=== PATIENT | female | born 1990 | race Caucasian/White ===

== ENCOUNTER 2018-01-02 14:41 | Emergency (ER) | payer OTHER ==
--- NOTE | 2018-01-02 14:42 | UC ---
Throat Pain/Nasal Chuckie HPI - HPI Summary HPI Summary: Pt presents with sore throat and body aches since yesterday. Also mentions that over the last 3 days she has noticed thick white/yellow vaginal discharge. LMP was first week of december. Is currently sexually active with boyfriend, not worried about STDs and feels safe in relationship. Denies cough, SOB, chest pain , abdominal pain, n/v/d/c, dysuria. - History of Current Complaint Stated Complaint: SORE THROAT Time Seen by Provider: 01/02/18 14:42 Hx Obtained From: Patient Hx Last Menstrual Period: 08/23/16 Onset/Duration: Gradual Onset Severity: Mild Pain Intensity: 3 Pain Scale Used: 0-10 Numeric - Allergies/Home Medications Allergies/Adverse Reactions: Allergies Allergy/AdvReac Type Severity Reaction Status Date / Time MS Cephalexin [From Keflex] Allergy Severe Hives Verified 08/25/16 11:18 MS Ciprofloxacin [From Cipro] Allergy Severe Hives Verified 08/25/16 11:18 MS Penicillins [Penicillins] Allergy Severe Hives Verified 08/25/16 11:18 Home Medications: Home Medications Buprenorphine HCl/Naloxone HCl [Suboxone 12 mg-3 mg Sl Film] 1.5 tab PO BID [History Confirmed 01/02/18] QUEtiapine TAB* [Seroquel TAB*] 1 tab PO DAILY 01/02/18 [History Confirmed 01/02] PMH/Surg Hx/FS Hx/Imm Hx Respiratory History: Asthma Psychological History: Bipolar Disorder - Surgical History Surgical History: None - Family History Known Family History: Positive: Hypertension Negative: Cardiac Disease, Diabetes - Social History Occupation: Unemployed Lives: Assisted Living Alcohol Use: None Alcohol Amount: recovering Substance Use Type: Cocaine, Heroin, Marijuana Substance Use Comment - Amount & Last Used: denies this visit Smoking Status (MU): Heavy Every Day Tobacco Smoker Type: Cigarettes Amount Used/How Often: 1/2 -1 PPD Length of Time of Smoking/Using Tobacco: started at age 13 Have You Smoked in the Last Year: Yes Household Exposure Type: Cigarettes - Immunization History Most Recent Influenza Vaccination: not current Most Recent Tetanus Shot: unknown Most Recent Pneumonia Vaccination: never Review of Systems Constitutional: Other - Body aches Skin: Negative Eyes: Negative ENT: Sore Throat Respiratory: Negative Cardiovascular: Negative Gastrointestinal: Negative Genitourinary: Vaginal/Penile Discharge Neurovascular: Negative Musculoskeletal: Negative Neurological: Negative Psychological: Negative All Other Systems Reviewed And Are Negative: Yes Physical Exam Triage Information Reviewed: Yes Appearance: Well-Appearing, No Pain Distress, Obese Vital Signs Reviewed: Yes Eyes: Positive: Conjunctiva Clear. Negative: Conjunctiva Inflamed, Discharge ENT: Positive: Hearing grossly normal, Pharynx normal, TMs normal, Uvula midline. Negative: Pharyngeal erythema, Nasal congestion, Nasal drainage, TM bulging, TM dull, TM red, Tonsillar swelling, Tonsillar exudate, Hoarse voice, Sinus tenderness Neck: Positive: Supple, Nontender, No Lymphadenopathy Respiratory: Positive: Lungs clear, Normal breath sounds, No respiratory distress, No accessory muscle use Cardiovascular: Positive: RRR, No Murmur, Pulses Normal Abdomen Description: Positive: Nontender, No Organomegaly, Soft. Negative: CVA Tenderness (R), CVA Tenderness (L), Distended, Guarding Bowel Sounds: Positive: Present Pelvic Exam: Positive: External Exam Normal, No Cerv. Motion Tender, No Masses, Discharge - Yellow/White milk-like thin discharge with odor.. Negative: Active Bleeding, Blood, Lesions, Ulcers Neurological: Positive: Alert Psychological: Positive: Age Appropriate Behavior Skin: Negative: rashes, significant lesion(s) Throat Pain/Nasal Course/Dx - Course Course Of Treatment: POC strep. POC flu. UA: negative. Will send for GC/ Chlamydia. Suspect BV and will treat with Flagyl. Pelvic exam assisted by Afua Tolliver RN. - Differential Dx/Diagnosis Provider Diagnoses: Vaginal discharge. Sore throat Discharge - Sign-Out/Discharge Documenting (check all that apply): Discharge - Discharge Plan Condition: Stable Disposition: HOME Prescriptions: metroNIDAZOLE [Flagyl] 500 mg PO BID #14 tablet Patient Education Materials: Bacterial Vaginosis (ED) Forms: *Gen. Provider Communication Referrals: No Primary Care Phys,NOPCP [Primary Care Provider] - Additional Instructions: If you develop a fever, shortness of breath, chest pain, new or worsening symptoms - please call your PCP or go to the ED. 1) Do not drink alcohol while taking this medication as it can cause you to become sick. 2) We have taken cultures at today's visit and will call you in 2-3 days with results. - Billing Disposition and Condition Condition: STABLE Disposition: HOME
[2018-01-02 14:49] VITALS: BP 109/71
--- NOTE | 2018-01-03 14:56 | UC ---
- Progress Note Progress Note: Culture positive for gardnerella. High suspicion at time of visit and was treated with Flagyl. No change, but can let her know. Discharge - Sign-Out/Discharge Documenting (check all that apply): Post-Discharge Follow Up - Discharge Plan Condition: Stable Disposition: HOME Prescriptions: metroNIDAZOLE [Flagyl] 500 mg PO BID #14 tablet Patient Education Materials: Bacterial Vaginosis (ED) Forms: *Gen. Provider Communication Referrals: No Primary Care Phys,NOPCP [Primary Care Provider] - Additional Instructions: If you develop a fever, shortness of breath, chest pain, new or worsening symptoms - please call your PCP or go to the ED. 1) Do not drink alcohol while taking this medication as it can cause you to become sick. 2) We have taken cultures at today's visit and will call you in 2-3 days with results. - Billing Disposition and Condition Condition: STABLE Disposition: HOME
== END 2018-01-02 16:00 | disposition home or self-care (01) ==
LOC: UCEAST 14:41
DX: J02.9 Acute pharyngitis, unspecified (principal); N89.8 Other specified noninflammatory disorders of vagina; B96.89 Other specified bacterial agents as the cause of diseases classified elsewhere; F17.210 Nicotine dependence, cigarettes, uncomplicated; Z88.3 Allergy status to other anti-infective agents; Z88.0 Allergy status to penicillin
CPT/HCPCS: 81003; 87480; 87491; 87502; 87510; 87591; 87651; 87661; 99212; G0463

== ENCOUNTER 2018-02-17 14:39 | Emergency (ER) | payer OTHER ==
[2018-02-17 14:55] VITALS: BP 132/73
--- NOTE | 2018-02-17 16:23 | UC ---
Respiratory Complaint HPI - HPI Summary HPI Summary: 27 yo WF c/o mild SOB while laying down, with separate c/o upper and lower extremity swelling x few days. No cardiac issues, no changes in diet - History of Current Complaint Chief Complaint: UCGeneralIllness Stated Complaint: SWOLLEN Time Seen by Provider: 02/17/18 15:26 Hx Obtained From: Patient Hx Last Menstrual Period: 01/09/18 Onset/Duration: Lasting Days Severity Initially: Moderate Severity Currently: Moderate Pain Intensity: 0 Character: Cough: Productive Aggravating Factors: Nothing Alleviating Factors: Nothing Associated Signs And Symptoms: Positive: Pleuritic Chest Pain - Allergies/Home Medications Allergies/Adverse Reactions: Allergies Allergy/AdvReac Type Severity Reaction Status Date / Time cephalexin [From Keflex] Allergy Severe Hives Verified 02/17/18 15:07 ciprofloxacin [From Cipro] Allergy Severe Hives Verified 02/17/18 15:07 Penicillins Allergy Severe Hives Verified 02/17/18 15:07 PMH/Surg Hx/FS Hx/Imm Hx Previously Healthy: No Cardiovascular History: Cardiac Disease - Surgical History Surgical History: None - Family History Known Family History: Positive: Hypertension Negative: Cardiac Disease, Diabetes - Social History Alcohol Use: None Alcohol Amount: recovering Substance Use Type: None Substance Use Comment - Amount & Last Used: recovered Smoking Status (MU): Heavy Every Day Tobacco Smoker Type: Cigarettes Amount Used/How Often: 1/2 -1 PPD Length of Time of Smoking/Using Tobacco: started at age 13 Have You Smoked in the Last Year: Yes Household Exposure Type: Cigarettes - Immunization History Most Recent Influenza Vaccination: not current Most Recent Tetanus Shot: unknown Most Recent Pneumonia Vaccination: never Review of Systems Constitutional: Negative Skin: Other - generalized swelling Eyes: Negative ENT: Negative Respiratory: Shortness Of Breath, Cough Cardiovascular: Negative Gastrointestinal: Negative Genitourinary: Negative Motor: Negative Neurovascular: Negative Musculoskeletal: Negative Neurological: Negative Psychological: Negative All Other Systems Reviewed And Are Negative: Yes Physical Exam Triage Information Reviewed: Yes Appearance: Obese Vital Signs: Initial Vital Signs Temp 36.6 C 02/17/18 14:48 Pulse 98 02/17/18 14:48 Resp 18 02/17/18 14:48 BP 132/73 02/17/18 14:48 Pulse Ox 100 02/17/18 14:48 Eye Exam: Normal ENT Exam: Normal Dental Exam: Normal Neck exam: Normal Neck: Positive: 1 Respiratory: Positive: Other: - coarse BS B/L. Negative: No respiratory distress, No accessory muscle use, Respiratory distress Cardiovascular Exam: Normal Abdominal Exam: Normal Musculoskeletal Exam: Normal Neurological Exam: Normal Psychological Exam: Normal Skin Exam: Normal Skin: Positive: Other - Mild pitting LE swelling R>L extremities UC Diagnostic Evaluation - Laboratory O2 Sat by Pulse Oximetry: 100 Respiratory Course/Dx - Course Course Of Treatment: CXR- RLL infilatrate, pt is a smoker- pt may be developing BronchoPNA- Z hilray - Differential Dx/Diagnosis Provider Diagnoses: bronchitis. PNA. Mild edema Discharge - Sign-Out/Discharge Documenting (check all that apply): Discharge/Admit/Transfer - Discharge Plan Condition: Stable Disposition: HOME Patient Education Materials: Pneumonia (ED) Referrals: Non Staff,Doctor [Primary Care Provider] - - Billing Disposition and Condition Condition: STABLE Disposition: HOME
--- NOTE | 2018-02-17 16:43 | RAD ---
Indication: Leg swelling and edema. 2 views of the chest demonstrate no mediastinal shift. Heart is of normal size and configuration. Lung stafford are clear. IMPRESSION: No active cardiopulmonary disease is noted.
== END 2018-02-17 16:55 | disposition home or self-care (01) ==
LOC: UCEAST 14:39
DX: J40 Bronchitis, not specified as acute or chronic (principal); J18.9 Pneumonia, unspecified organism; R60.9 Edema, unspecified; Z88.1 Allergy status to other antibiotic agents; Z88.0 Allergy status to penicillin
CPT/HCPCS: 71046; 84702; 99212; G0463

== ENCOUNTER 2018-05-03 13:03 | Emergency (ER) | payer OTHER ==
[2018-05-03 13:27] VITALS: BP 106/61
--- NOTE | 2018-05-03 13:57 | ED ---
Throat Pain/Nasal Congestion - HPI Summary HPI Summary: 28-year-old female presents with left ear pain for the past 2 days. She states she has been swimmings that she feels pain in the front of left ear. 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 She denies any sinus congestion. No sore throat. No fevers. She does not have a history of ear infections. - History of Current Complaint Chief Complaint: UCEar Time Seen by Provider: 05/03/18 13:39 - Allergies/Home Medications Allergies/Adverse Reactions: Allergies Allergy/AdvReac Type Severity Reaction Status Date / Time cephalexin [From Keflex] Allergy Severe Hives Verified 05/03/18 13:32 ciprofloxacin [From Cipro] Allergy Severe Hives Verified 05/03/18 13:32 Penicillins Allergy Severe Hives Verified 05/03/18 13:32 Home Medications: Home Medications Buprenorphine HCl/Naloxone HCl [Suboxone 4 mg-1 mg Sl Film] 4 mg SL BEDTIME [History Confirmed 05/03/18] Buprenorphine HCl/Naloxone HCl [Suboxone 4 mg-1 mg Sl Film] 8 mg SL DAILY [History Confirmed 05/03/18] Gabapentin CAP(*) [Neurontin 300 CAP(*)] 1 tab PO TID 05/03/18 [History Confirmed 05/03/18] PMH/Surg Hx/FS Hx/Imm Hx Endocrine/Hematology History: Denies: Hx Diabetes, Hx Thyroid Disease Cardiovascular History: Denies: Hx Hypertension Respiratory History: Reports: Hx Asthma Denies: Hx Chronic Obstructive Pulmonary Disease (COPD) GI History: Denies: Hx Ulcer Musculoskeletal History: Reports: Hx Back Problems - sciatic back pain; pt denies Psychiatric History: Reports: Hx Anxiety, Hx Attention Deficit Hyperactivity Disorder, Hx Depression, Hx Post Traumatic Stress Disorder, Hx Inpatient Treatment, Hx Community Mental Health Tx, Hx Substance Abuse Denies: Hx Eating Disorder, Hx of Violent Episodes Against Others Infectious Disease History: Yes Infectious Disease History: Reports: Hx Hepatitis - Hep C (Current) Denies: Hx Human Immunodeficiency Virus (HIV), Hx of Known/Suspected MRSA, History Other Infectious Disease, Traveled Outside the [place] in Last 30 Days - Family History Known Family History: Positive: Hypertension Negative: Cardiac Disease, Diabetes - Social History Alcohol Use: None Alcohol Amount: recovering Hx Substance Use: Yes Substance Use Type: Reports: None Substance Use Comment - Amount & Last Used: recovered Hx Tobacco Use: Yes Smoking Status (MU): Heavy Every Day Tobacco Smoker Type: Cigarettes Amount Used/How Often: 1/2 -1 PPD Length of Time of Smoking/Using Tobacco: started at age 13 Have You Smoked in the Last Year: Yes Review of Systems Negative: Fever Positive: Ear Ache Negative: Chest Pain Negative: Shortness Of Breath All Other Systems Reviewed And Are Negative: Yes Physical Exam Triage Information Reviewed: Yes Vital Signs On Initial Exam: Initial Vitals Temp Pulse Resp BP Pulse Ox 98.3 F 76 17 106/61 99 05/03/18 13:21 05/03/18 13:21 05/03/18 13:21 05/03/18 13:21 05/03/18 13:21 Vital Signs Reviewed: Yes Appearance: Positive: Well-Appearing Skin: Positive: Warm, Dry Head/Face: Positive: Normal Head/Face Inspection Eyes: Positive: Normal, EOMI, MURTAZA, Conjunctiva Clear ENT: Positive: TMs normal, Other - Pain with manipulation of tragus, Ear canal is edematous and erythematous on left Respiratory/Lung Sounds: Positive: Clear to Auscultation, Breath Sounds Present Cardiovascular: Positive: Normal, RRR Musculoskeletal: Positive: Normal Neurological: Positive: Normal Psychiatric: Positive: Normal Diagnostics - Vital Signs Vital Signs Temp Pulse Resp BP Pulse Ox 05/03/18 13:21 98.3 F 76 17 106/61 99 - Laboratory Lab Statement: Any lab studies that have been ordered have been reviewed, and results considered in the medical decision making process. EENT Course/Dx - Course Course Of Treatment: 28-year-old female presents with left ear pain for the past 2 days. She states she has been swimmings that she feels pain in the front of left ear. 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 She denies any sinus congestion. No sore throat. No fevers. She does not have a history of ear infections. On exam ear canal is edematous and erythematous. Pain with manipulation of the tragus. TMs normal. We'll place on neomycin. Patient understands agrees with plan. - Differential Diagnoses Differential Diagnoses: Otitis Externa, Otitis Media, Perforated TM - Diagnoses Provider Diagnoses: Otitis externa Discharge - Sign-Out/Discharge Documenting (check all that apply): Patient Departure - Discharge Plan Condition: Good Disposition: HOME Prescriptions: Neomyc/Polym/HC 1% OTIC SUSP* [Cortisporin Otic Susp 1%*] 4 drop LEFT EAR TID # 1 btl Patient Education Materials: Otitis Externa (ED) Referrals: Karolina Tanner MD [Primary Care Provider] - Additional Instructions: Use 4 drops three times a day for 7 days Take Tylenol or ibuprofen for pain every 6 hours as needed Avoid swimming until done with antibiotic Follow up with primary in a week to make sure resolving Return to ED if develop any new or worsening symptoms - Billing Disposition and Condition Condition: GOOD Disposition: Home
== END 2018-05-03 14:04 | disposition home or self-care (01) ==
LOC: UCEAST 13:03
DX: H60.92 Unspecified otitis externa, left ear (principal); H66.92 Otitis media, unspecified, left ear; H72.92 Unspecified perforation of tympanic membrane, left ear; L40.9 Psoriasis, unspecified; J45.909 Unspecified asthma, uncomplicated; F17.210 Nicotine dependence, cigarettes, uncomplicated; Z88.1 Allergy status to other antibiotic agents; Z88.0 Allergy status to penicillin
CPT/HCPCS: 99212; G0463

== ENCOUNTER 2018-05-25 11:32 | Emergency (ER) | payer OTHER ==
[2018-05-25 11:52] VITALS: BP 100/64
--- NOTE | 2018-05-25 12:09 | UC ---
Skin Complaint HPI - HPI Summary HPI Summary: rash under both arms for 5 days past 2 days has developed an abscess in left axilla, no drainage, some decrease in size with heat- - History of Current Complaint Chief Complaint: UCRash Time Seen by Provider: 05/25/18 11:57 Stated Complaint: RASH UNDER ARMS Hx Obtained From: Patient Hx Last Menstrual Period: 04/08/18 ?: No Onset/Duration: Sudden Onset, Lasting Days - 5, Worse Since - past 2 Timing: Constant Pain Intensity: 8 Pain Scale Used: 0-10 Numeric Location: Discrete Character: Pain, Redness, Raised Aggravating Factor(s): Touch Alleviating Factor(s): Heat Associated Signs & Symptoms: Positive: Rash, Tenderness - Allergy/Home Medications Allergies/Adverse Reactions: Allergies Allergy/AdvReac Type Severity Reaction Status Date / Time cephalexin [From Keflex] Allergy Severe Hives Verified 05/25/18 11:52 ciprofloxacin [From Cipro] Allergy Severe Hives Verified 05/25/18 11:52 Penicillins Allergy Severe Hives Verified 05/25/18 11:52 Home Medications: Home Medications Buprenorphine TAB* [Subutex TAB*] 12 mg SL DAILY 05/25/18 [History Confirmed ] Review of Systems Constitutional: Negative Skin: Rash - both axilla, Other - abscess left axilla Eyes: Negative ENT: Negative Respiratory: Negative Cardiovascular: Negative Gastrointestinal: Negative Genitourinary: Negative Motor: Negative Neurovascular: Negative Musculoskeletal: Negative Neurological: Negative Psychological: Negative Is Patient Immunocompromised?: No All Other Systems Reviewed And Are Negative: Yes PMH/Surg Hx/FS Hx/Imm Hx Previously Healthy: Yes - opiate abuse disorder in remission - Surgical History Surgical History: None - Family History Known Family History: Positive: Hypertension Negative: Cardiac Disease, Diabetes - Social History Occupation: Unemployed Lives: With Family Alcohol Use: None Alcohol Amount: recovering Substance Use Type: None Substance Use Comment - Amount & Last Used: recovered Smoking Status (MU): Heavy Every Day Tobacco Smoker Type: Cigarettes Amount Used/How Often: 1/2 -1 PPD Length of Time of Smoking/Using Tobacco: started at age 13 Have You Smoked in the Last Year: Yes Household Exposure Type: Cigarettes Cessation Counseling: Patient Advised to Stop - Immunization History Most Recent Influenza Vaccination: not current Most Recent Tetanus Shot: unknown Most Recent Pneumonia Vaccination: never Physical Exam Triage Information Reviewed: Yes Appearance: Well-Appearing, No Pain Distress, Well-Nourished Vital Signs: Initial Vital Signs Temp 98 F 05/25/18 11:49 Pulse 83 05/25/18 11:49 Resp 17 05/25/18 11:49 BP 100/64 05/25/18 11:49 Pulse Ox 99 05/25/18 11:49 Vital Signs Reviewed: Yes Eye Exam: Normal Eyes: Positive: Conjunctiva Clear ENT Exam: Normal ENT: Positive: Normal ENT inspection, Hearing grossly normal. Negative: Trismus , Muffled voice, Hoarse voice Dental Exam: Normal Neck exam: Normal Neck: Positive: Supple, Nontender, No Lymphadenopathy Respiratory Exam: Normal Respiratory: Positive: Chest non-tender, No respiratory distress, No accessory muscle use Cardiovascular Exam: Normal Cardiovascular: Positive: RRR, Pulses Normal, Brisk Capillary Refill Musculoskeletal Exam: Normal Musculoskeletal: Positive: Strength Intact, ROM Intact, No Edema Neurological Exam: Normal Neurological: Positive: Alert, Muscle Tone Normal Psychological Exam: Normal Skin Exam: Other Skin: Positive: rashes - right axilla tenser flat erythema, Other - left abscess 3 cm diameter-no fluctulant center, tenting still firm Course/Dx - Course Course Of Treatment: continue heat, clindamycin follow at [facility] or return as needed - Diagnoses Provider Diagnoses: abscess left axilla, 1st trimester , nicotine dependent, opiate and alcohol abuse disorder in remission Discharge - Sign-Out/Discharge Documenting (check all that apply): Patient Departure - Discharge Plan Condition: Stable Disposition: HOME Prescriptions: Clindamycin Cap(NF) [Clindamycin Cap 300 mg Cap(NF)] 300 mg PO Q6H #40 cap Patient Education Materials: Abscess (ED), Warm Compress or Soak (ED) Referrals: Karolina Tanner MD [Primary Care Provider] - 1 Week - Billing Disposition and Condition Condition: STABLE Disposition: Home
== END 2018-05-25 12:15 | disposition home or self-care (01) ==
LOC: UCEAST 11:32
DX: O26.891 Other specified pregnancy related conditions, first trimester (principal); L02.412 Cutaneous abscess of left axilla; Z3A.00 Weeks of gestation of pregnancy not specified; F11.11 Opioid abuse, in remission; F10.11 Alcohol abuse, in remission; Z88.1 Allergy status to other antibiotic agents; Z88.0 Allergy status to penicillin; F17.210 Nicotine dependence, cigarettes, uncomplicated
CPT/HCPCS: 99211; G0463

== ENCOUNTER 2018-12-28 12:10 | Inpatient (IN) | payer OTHER ==
[2018-12-28] MEDS ORDERED: Buffered Lidocaine 1% SYRIN* 1 ML/SYRINGE INTRADERM ONE (12:40)
[2018-12-28] MEDS ORDERED: Lactated Ringers 1000 ML Bag* 1,000 ML IV ONE (12:40)
[2018-12-28] MEDS ORDERED: Dinoprostone* 10 MG VAG.SUPP VAGINAL ONE (13:00)
[2018-12-28] MEDS ORDERED: Lactated Ringers 1000 ML Bag* 1,000 ML IV SCH (13:00)
--- NOTE | 2018-12-28 13:08 | HP ---
General Information - Reason for Visit high risk due to social problems, here for ripening/induction - General Information Maternal Age: 28 Grav: 6 Para: 2 SAB: 0 IEA: 3 Estimated Due Date: 01/02/19 Determined By: Early Ultrasound Gestational Age in Weeks/Days: 39w 2d Maternal Blood Type and Rh: O Positive - Results this Serology/RPR Result: Non-Reactive Rubella Result: Immune HBsAg Result: Negative HIV Result: Negative GBS Culture Result: Negative Past Medical History Delivery History: Hx Uncomplicated Vaginal Delivery Past Medical History Comment: past hx Hep C Substance Abuse Disorder, currently on Subutex Past Surgical History Comment: D&C 2007 Pertinent Family History: See Records - Antepartal Records Antepartal Records: Reviewed, Complicated by: - drug use, smoker, incarceration Review of Systems Constitutional: Comfortable CV Complaint: No Respiratory: Shortness of Breath: No Gastrointestinal: No Nausea/Vomiting, Soft Stool Genitourinary: No Dysuria, No Bleeding, No Leaking Fluid Musculoskeletal: Back Pain Neurological: No Headache, No Visual Changes Movement: Normal Exam Allergies/Adverse Reactions: Allergies cephalexin [From Keflex] Allergy (Severe, Verified 12/26/18 15:16) Hives ciprofloxacin [From Cipro] Allergy (Severe, Verified 12/26/18 15:16) Hives Penicillins Allergy (Severe, Verified 12/26/18 15:16) Hives - Measurements Height: 5 ft 7 in Weight: 264 lb Weight in lbs: [phone] Body Mass Index (BMI): 41.3 Pre- Weight: 223 lb Weight Gained This : 41 lbs and 0 ozs - Exam Breast: - - soft, no masses Extremities: Edema - varicosities Heart: Normal Rhythm/Heart Sounds HEENT: No Significant Findings Lungs: Clear Bilaterally Reflexes: DTR 2+ Thyroid: No Thyromegaly - Abdominal Exam Abdomen Exam: Non-Tender Targeted Exam Findings See L&D Outpatient Visit Provider Note for Findings: N/A Estimated Weight: 8 lbs Presenting Part: Vertex Membrane Status: Intact EFM Findings - External Monitor Findings Baseline Heart Rate: 130 External Monitor Findings: Accelerations Present, No Pattern of Variable or Late Decelerations, Variability Moderate, Baseline Stable External Monitor Findings Comment: category 1 Contractions: None Assessment/Plan - Assessment at 39 w 2 d, unripe cervix, for elective induction - Obstetrical Risk Factors Obstetrical Risk Factors: Substance Abuse, Tobacco Use, Psychosocial Issues - Plan Plan: Induction, Cervical Ripening - Date/Time of Admission Date of Admission: 12/28/18 Time of Admission: 13:00
[2018-12-28] MEDS: Gabapentin CAP(*) 400 MG PO SCH (13:16)
[2018-12-28 14:06] LABS: Barbiturates Urine Screen None Detected (None Detect); Benzodiazepine Urine Screen None Detected (None Detect); Urine Cannabinoids Screen None Detected (None Detect)
[2018-12-28] MEDS: Buprenorphine TAB* 8 MG PO SCH (20:18)
[2018-12-28] MEDS: Buprenorphine TAB* 2 MG TAB.SL PO SCH (20:18)
--- NOTE | 2018-12-29 08:37 | PN ---
Progress Note - Progress Note Date of Service: 12/29/18 Note: S: Feeling uncomfortable, reports cramping in lower abdomen. Reports difficulty sleeping overnight, up to chair and back to bed frequently. Ready to get labor started O: VS: B/P 118/67, HR: 86, RR: 20, T:98.4 FHR: 135, moderate variability, +accels, no decels. UCs: Irregular, mild VE: 1cm/90%effaced/-3 station/vertex/intact A: IUP at 39 3/7 weeks here for term induction s/p cervidil No evidence of acidemia, Category I FHR P: PARQ discussion re: induction, IV Pitocin, pt agrees to trial Discussed plan for pain management, patient very clear she will want an epidural at some point
[2018-12-29] MEDS: Buprenorphine TAB* 2 MG TAB.SL PO SCH ×3 (08:51→21:59)
[2018-12-29] MEDS: Gabapentin CAP(*) 400 MG PO SCH ×3 (08:52→21:44)
[2018-12-29] MEDS: Buprenorphine TAB* 8 MG PO SCH ×3 (08:53→21:59)
[2018-12-29] MEDS ORDERED: Oxytocin in LR* 20 UNITS/1,000 ML BAG IVPB SCH ×3 (09:00→22:00)
[2018-12-29 10:11] LABS: ABS Basophils 0 10^3/ul (0-0.2); ABS Eosinophils 0.1 10^3/ul (0-0.6); ABS Lymphocytes 1.7 10^3/ul (1.0-4.8); ABS Monocytes 0.8 10^3/ul (0-0.8); ABS Neutrophils 10.6 10^3/ul (1.5-7.7); ABS Nucleated RBC 0 10^3/ul; Eosinophil % 0.9 %; Hematocrit 36 % (33-41); Lymphocyte % 12.9 %; Mean Corpuscular HGB Conc 33 g/dL (31-36); Mean Corpuscular Hemoglobin 29 pg (27-31); Mean Corpuscular Volume 87 fL (80-97); Mean Platelet Volume 8.7 fL (7.4-10.4); Nucleated Red Blood Cells % 0; Platelet Count 299 10^3/uL (150-450); Red Blood Count 4.16 10^6 /uL (3.70-4.87); Red Cell Distribution Width 15 % (10.5-15); White Blood Count 13.2 10^3/uL (3.5-10.8)
--- NOTE | 2018-12-29 11:51 | PN ---
Progress Note - Progress Note Date of Service: 12/29/18 Note: S: Still feeling contractions in lower abdomen, but feeling stronger now. Optimistic and excited to meet this baby. O: B/P: 102/65, P: 80, RR: 20, T: 97.9 FHR: 120, moderate variability, +accels, no late or variable decelerations UCs: 2-7 minutes for past hour, irregular, mild Pitocin at 12 mu/min A: IUP at 39 3/7 weeks Vital signs stable Category 1 FHR, no evidence of acidemia Not in active labor GBS negative P: Continue to titrate pitocin per protocol until adequate contraction pattern Discussed upright positioning, she plans to walk in the [place] after lunch and then get in the tub Anticipate SVB
--- NOTE | 2018-12-29 14:45 | PN ---
Progress Note - Progress Note Date of Service: 12/29/18 Note: S: Pt resting between UCs. Reports they are intermittently strong but lately not as intense. Feeling frustrated because she's really ready to meet her baby. O: BP 103/64 HR 79 RR 18 T 97.5 FHT 120bpm. Moderate variability. +Accels. No decels UCs irregular and difficult to trace due to pt body habitus. IV pitocin at 20mu/ min VE: 3cm/90%/vtx -1, AROM to clear fluid A: IUP at 39-3/7 in early active labor No evidence of metabolic acidemia P: Hold IV pit x 30 min to see if AROM effective. Consider IUPC PRN difficulty assessing UCs. Pt will request labor epidural when more uncomfortable
[2018-12-29] MEDS ORDERED: OBEPIDURAL* 250 ML EPIDURAL ONE (15:40)
--- NOTE | 2018-12-29 15:46 | PN ---
Progress Note - Progress Note Date of Service: 12/29/18 Note: S: Feeling uncomfortable, verbalizes "I've felt enough contractions for two days ," requesting pain relief O: VS: B/P: 103/64, P:79, RR:18, T: 97.5 FHR: 125, moderate variability, +accels, no decelerations UCs: q3min, moderate Vaginal exam deferred A: IUP at 39 3/7 in early active labor Category 1 FHR, no evidence of metabolic acidemia P: Discussed epidural pain relief, pt desires Dr. Bhagat pagecem for consult
[2018-12-29] MEDS ORDERED: fentaNYL* 50 MCG/ML 2 ML VIAL (100 MCG VIAL) ONE (15:49)
[2018-12-29] MEDS ORDERED: Famotidine TAB* 20 MG PO PRN (16:16)
[2018-12-29] MEDS ORDERED: Phenylephrine 40 MCG/ML SYRINGE IV PUSH PRN ×2 (16:16)
[2018-12-29] MEDS ORDERED: Lactated Ringers 1000 ML Bag* 1,000 ML IV ONE (16:16)
[2018-12-29] MEDS ORDERED: Sodium Citrate/Citric Acid* 15 ML UDC PO PRN (16:16)
[2018-12-29] MEDS ORDERED: Lactated Ringers 1000 ML Bag* 1,000 ML IV SCH ×2 (17:00→22:00)
[2018-12-29] MEDS ORDERED: OBEPIDURAL* 250 ML EPIDURAL SCH (17:00)
--- NOTE | 2018-12-29 17:10 | PN ---
Progress Note - Progress Note Date of Service: 12/29/18 Note: S: Feeling comfortable with epidural analgesia. Family at bedside for support. O: VS: B/P noted to be 140s/90s while sitting up for epidural, resolved with pain relief. Now 107/56. P: 75, RR: 18, T: 97.9 FHR: 120, moderate variability, + accelerations. Isolated early-type deceleration noted UCs: [place] re-adjusted to improve tracing VE: 4-5 cm/90%effaced/-1 station/vertex, clear fluid A: IUP at 39 4/7 days in early active labor Pitocin at 12 Category II FHR, doubt metabolic acidemia P: CLose monitoring of maternal- status, re-evaluate in 1-2 hours or sooner as needed Consider IUPC
--- NOTE | 2018-12-29 17:32 | PN ---
Progress Note - Progress Note Date of Service: 12/29/18 Note: Quick note: IUPC placed without difficulty.
--- NOTE | 2018-12-29 20:01 | PN ---
Progress Note - Progress Note Date of Service: 12/29/18 Note: S: Pt more uncomfortable and vocal with UCs. Paged by RN to review FHT and pt comfort level O: BP 120/66 HR 81 SpO2 98% FHT 115bpm. Moderate variability. +Accels. Occ early type decel UCs q 2-6, IV pit at 30mu/min, MVUs 90 VE 4-5cm/90%/vtx -1, clear fluid A: IUP at 39-3/7 in early active labor Cat II FHT, doubt metabolic acidemia P: Close monitoring of maternal/ status. Anesthesia to bedside to assess for possible bolus. Continue IV pitocin. Dr. Smith aware of pt presence and condition.
--- NOTE | 2018-12-29 20:53 | PN ---
Progress Note - Progress Note Date of Service: 12/29/18 Note: Quick Note: RN changed out pitocin bag at CNM request. Immediately pt went from UCs q 4-10 min to q minute with sudden onset pressure and urge to push. IV pitocin discontinued, O2 by mask and increased IV fluids. Pushed x 10 min to liveborn male. See delivery note for complete details.
--- NOTE | 2018-12-29 20:59 | PROCNOTE ---
[facility] OB: Delivery Note - Delivery A Date of : 12/29/18 Time of : 20:33 [place] Sex: Male - "Saroj" Score 1 Minute: 9 Score 5 Minutes: 9 Gestational Age in Weeks and Days at Delivery: 39 Weeks and 3 Days Delivery Method: Spontaneous Vaginal Labor: Induced Amniotic Fluid: Clear Estimated Blood Loss: 250 Anesthesia/Analgesia: CEI for Labor - placed by Dr. Bhagat. Bolused by Dr. Steiner Delivered By: Ariadna Mckenzie - Nursery Level of Nursery: Regular/Bedside - Perineum Perineal Injury: None/Intact - Events Delivery Events of Note: Pitocin During Labor, Supplemental O2 to Mother, IUPC Use - Additional Delivery Notes Additional Delivery Notes: Pt admitted for term induction of labor at 39-37. Received Cervidil x 1 followed by IV pitocin and amniotomy to clear fluid with expected progression to complete. Length of active phase 5 hours, 13 min. Pushed x 10 min. liveborn male. Slow, controlled delivery of head. OA to CLEMENT[place]. Shoulders followed easily with maternal push. [place] vigorous with spontaneous cry. HR>110bpm. Delivered to maternal abdomen. Cord clamped x 2 and cut by FOB when pulsations ceased. Spontaneous delivery intact placenta. Membranes complete. Fundus firm to massage with IV pitocin infusing. Careful inspection of perineum yielded no lacerations. No repair needed. EBL 250. At time of note mother and infant in stable condition. Planning to breast feed. Of note mother with h/o substance abuse during . Currently on suboxone support and followed closely by prescriber and drug court. Social work aware and will visit mother during stay at [facility]
[2018-12-29] MEDS ORDERED: Dibucaine 1% 28.35 GM TUBE PR PRN (21:01)
[2018-12-29] MEDS ORDERED: Glycerin ADULT SUPP PR PRN (21:01)
[2018-12-29] MEDS ORDERED: Acetaminophen TAB* 325 MG PO PRN (21:01)
[2018-12-29] MEDS ORDERED: Witch Hazel PAD* JAR TOPICAL PRN (21:01)
[2018-12-29] MEDS ORDERED: Ibuprofen TAB* 600 MG ONE (22:18)
[2018-12-30] MEDS: Ibuprofen TAB* 600 MG PO PRN ×4 (04:12→23:31)
[2018-12-30 07:45] LABS: ABS Basophils 0.1 10^3/ul (0-0.2); ABS Eosinophils 0.1 10^3/ul (0-0.6); ABS Lymphocytes 2.3 10^3/ul (1.0-4.8); ABS Monocytes 0.9 10^3/ul (0-0.8); ABS Neutrophils 12.3 10^3/ul (1.5-7.7); ABS Nucleated RBC 0 10^3/ul; Eosinophil % 0.8 %; Hematocrit 35 % (33-41); Hemoglobin 11.7 g/dL (12.0-16.0); Lymphocyte % 14.6 %; Mean Corpuscular HGB Conc 33 g/dL (31-36); Mean Corpuscular Hemoglobin 29 pg (27-31); Mean Corpuscular Volume 88 fL (80-97); Mean Platelet Volume 8.6 fL (7.4-10.4); Nucleated Red Blood Cells % 0; Platelet Count 275 10^3/uL (150-450); Red Blood Count 4.03 10^6 /uL (3.70-4.87); Red Cell Distribution Width 15 % (10.5-15); White Blood Count 15.7 10^3/uL (3.5-10.8)
[2018-12-30] MEDS: Docusate CAP* 100 MG PO SCH ×3 (08:31→21:10)
[2018-12-30] MEDS: Simethicone TAB* 80 MG TAB.CHEW PO SCH ×2 (08:31→14:51)
[2018-12-30] MEDS: Gabapentin CAP(*) 400 MG PO SCH ×3 (08:33→21:10)
[2018-12-30] MEDS: Buprenorphine TAB* 2 MG TAB.SL PO SCH ×3 (08:34→21:11)
[2018-12-30] MEDS: Buprenorphine TAB* 8 MG PO SCH ×3 (08:34→21:11)
[2018-12-30] MEDS ORDERED: Ferrous Gluconate TAB* 324 MG TAB PO SCH (09:00)
[2018-12-30] MEDS ORDERED: Nicotine Inhaler* 10 MG AMP INH PRN (19:39)
[2018-12-30] MEDS ORDERED: Mouth Piece, Nicotine* 1 EACH CARTRIDGE INH PRN (19:43)
[2018-12-31] MEDS: Ibuprofen TAB* 600 MG PO PRN ×3 (06:08→21:06)
--- NOTE | 2018-12-31 08:49 | PN ---
Progress Note - Progress Note Date of Service: 12/31/18 Note: Pt is 2PP, doing well. Ambulatory, voiding without difficulty. Reports baby well. Introduced pacifier to soothe baby. Left nipple slightly damaged. O: VSS, left nipple red and cracked. Fundal height, down 2, non-tender , scant rubra. Perineum intact. A: Stable PP course. P: routine PP care. well. SW to follow. Well supported at bedside by mother. Letter given for drug court. Anticipate discharge to courtesy on 01/01/19.
[2018-12-31] MEDS: Gabapentin CAP(*) 400 MG PO SCH ×3 (09:08→21:06)
[2018-12-31] MEDS: Buprenorphine TAB* 8 MG PO SCH ×3 (09:09→21:05)
[2018-12-31] MEDS: Buprenorphine TAB* 2 MG TAB.SL PO SCH ×3 (09:09→21:05)
[2018-12-31] MEDS: Docusate CAP* 100 MG PO SCH ×2 (09:09→14:41)
[2019-01-01 08:39] VITALS: BP 132/69
[2019-01-01] MEDS: Gabapentin CAP(*) 400 MG PO SCH (09:16)
[2019-01-01] MEDS: Buprenorphine TAB* 2 MG TAB.SL PO SCH (09:17)
[2019-01-01] MEDS: Buprenorphine TAB* 8 MG PO SCH (09:18)
--- NOTE | 2019-01-01 13:19 | PN ---
Progress Note - Progress Note Date of Service: 01/01/19 SOAP: Subjective: [] Objective: [] Assessment: [] Plan: []
--- NOTE | 2019-01-01 13:32 | PN ---
Progress Note - Progress Note Date of Service: 01/01/19 Note: Prior to evaluating pt for discharge today several RNs reported that they noticed odor of tobacco in bathroom. RN stated that this morning she noticed the odor in the bathroom after pt showered, and that pt had not been outside or had visitors yet today. I discussed this with pt, and stressed that under no circumstances is tobacco use permitted in the hospital setting. Pt adamantly denied use. I was also concerned about the pt's dosage of buprenorphine. She has been receiving 20 mg three times per day while hospitalized, based on pt's self report of dosage. This is significantly higher than the recommended upper limits for medication assisted therapy for substance use disorder. I called [facility], where pt's buprenorphine regimen is managed. I spoke to Kimberlee HOLLAND there, who informed me that the pt's prescribed dosage is 8 mg three times/ day. She consulted with Dr. Cai who informed her that because of the ceiling effect there should be no adverse effect to pt from elevated dosing. She also stated that at levels over 12 mg/ day it is unlikely pt would experience withdrawal symptoms, but that if she does, she should speak to them at [facility]. I discussed this with pt, who insists that she normally takes 20 mg dosage TID. I informed pt that [facility] told me that her dosage is 8 mg TID. I requested she call [facility] and speak to nurse there, who wanted to clarify medication with pt. I also relayed these findings to Dr. Treviño, who recommended referring to physician at [facility] for recommendations regarding the medication. Pt to be discharged to courtesy status while infant undergoing SHAUN scoring. Her buprenorphine is to be managed again by [facility], where she sees Dr. Naye Tanner. Pt was seen by social work today, who has been in contact with CPS case work aide.
== END 2019-01-01 15:25 | disposition home or self-care (01) | DRG 560 ==
LOC: MCHOBOUT 12:10 → MCHOB 12:41
PROVIDERS: ADMIT Midwife; ATTEND Midwife
PROC: 10E0XZZ Delivery of Products of Conception, External Approach (ICD-10-PCS; principal; 2018-12-29)
PROC: 3E033VJ Introduction of Other Hormone into Peripheral Vein, Percutaneous Approach (ICD-10-PCS; 2018-12-29)
PROC: 10907ZC Drainage of Amniotic Fluid, Therapeutic from Products of Conception, Via Natural or Artificial Opening (ICD-10-PCS; 2018-12-29)
DX: O99.324 Drug use complicating childbirth (principal); Z37.0 Single live birth; F14.10 Cocaine abuse, uncomplicated; O99.334 Smoking (tobacco) complicating childbirth; F17.210 Nicotine dependence, cigarettes, uncomplicated; Z3A.39 39 weeks gestation of pregnancy
CPT/HCPCS: 36415; 80307; 85025; 86850; 86900; 86901; A9270-GY; J3010

== ENCOUNTER 2019-12-22 07:10 | Emergency (ER) | payer MEDICAID, OTHER ==
--- NOTE | 2019-12-22 07:40 | ED ---
Upper Extremity Pain - HPI Summary HPI Summary: This patient is a 29 year old female presenting to [facility] with a chief complaint of bilateral hand numbness and swelling since yesterday. She reports sharp pain in the hand. She states the pain feels the same in all five fingers. Patient reports a Hx of Carpal Tunnel Syndrome. She states she tries to shake her hands out but the pain does not go away. She states she has taken Tylenol and Ibuprofen for the pain. Medications reviewed, allergies noted. 118/Iron/Folate 6/Dha [[facility] Softgel] 1 cap PO DAILY WITH MEAL [History Confirmed 12/29/18] Gabapentin 400 mg PO TID 12/28/18 [History Confirmed 12/28/18] Ibuprofen TAB* [Motrin TAB* 600 MG] 600 mg PO Q6H PRN tab 01/01/19 [Rx] - History of Current Complaint Chief Complaint: EDGeneral Stated Complaint: SWOLLEN AND NUMB HANDS PER PT Time Seen by Provider: 12/22/19 07:31 Hx Obtained From: Patient Hx Last Menstrual Period: 04/08/18 Onset/Duration: Started Days Ago Pain Location: Hand - Allergies/Home Medications Allergies/Adverse Reactions: Allergies Allergy/AdvReac Type Severity Reaction Status Date / Time cephalexin [From Keflex] Allergy Severe Hives Verified 12/26/18 15:16 ciprofloxacin [From Cipro] Allergy Severe Hives Verified 12/26/18 15:16 Penicillins Allergy Severe Hives Verified 12/26/18 15:16 Home Medications: Home Medications 118/Iron/Folate 6/Dha [[facility] Softgel] 1 cap PO DAILY WITH MEAL [History Confirmed 12/29/18] Gabapentin 400 mg PO TID 12/28/18 [History Confirmed 12/28/18] Ibuprofen TAB* [Motrin TAB* 600 MG] 600 mg PO Q6H PRN tab 01/01/19 [Rx] PMH/Surg Hx/FS Hx/Imm Hx Endocrine/Hematology History: Denies: Hx Diabetes, Hx Thyroid Disease Cardiovascular History: Denies: Hx Hypertension Respiratory History: Reports: Hx Asthma Denies: Hx Chronic Obstructive Pulmonary Disease (COPD) GI History: Denies: Hx Ulcer Musculoskeletal History: Reports: Hx Back Problems - sciatic back pain; pt denies Psychiatric History: Reports: Hx Anxiety, Hx Attention Deficit Hyperactivity Disorder, Hx Depression, Hx Post Traumatic Stress Disorder, Hx Inpatient Treatment, Hx Community Mental Health Tx, Hx Substance Abuse Denies: Hx Eating Disorder, Hx of Violent Episodes Against Others Comment Only: Other Psychiatric Issues/Disorders - drug abuse, on subutex - Surgical History Surgery Procedure, Year, and Place: none Infectious Disease History: No Infectious Disease History: Reports: Hx Hepatitis - Hep C cured Denies: Hx Human Immunodeficiency Virus (HIV), Hx of Known/Suspected MRSA, History Other Infectious Disease, Traveled Outside the [place] in Last 30 Days - Family History Known Family History: Positive: Hypertension Negative: Cardiac Disease, Diabetes - Social History Alcohol Use: None Alcohol Amount: recovering Hx Substance Use: Yes Substance Use Type: Reports: Cocaine, Heroin Substance Use Comment - Amount & Last Used: Prenatals stated had relapse in Aug 2018 & early Nov 2018;on subutex Hx Tobacco Use: Yes Smoking Status (MU): Light Every Day Tobacco Smoker Type: Cigarettes Amount Used/How Often: 5-7 cigs/day Length of Time of Smoking/Using Tobacco: started at age 13 Have You Smoked in the Last Year: Yes Review of Systems Positive: Edema - Hands david, Other - Bilat hand pain Positive: Numbness - Hands david All Other Systems Reviewed And Are Negative: Yes Physical Exam - Summary Physical Exam Summary: Constitutional: Well-developed, Well-nourished, Alert. (-) Distressed Skin: Warm, Dry HENT: Normocephalic; Atraumatic Eyes: Conjunctiva normal Neck: Musculoskeletal ROM normal neck. (-) JVD, (-) Stridor, (-) Tracheal deviation Cardio: Rhythm regular, rate normal, Heart sounds normal; Intact distal pulses; Radial pulses are 2+ and symmetric. (-) Murmur Pulmonary/Chest wall: Effort normal. (-) Respiratory distress, (-) Wheezes, (-) Rales Abd: Soft, (-) tenderness, (-) Distension, (-) Guarding, (-) Rebound Musculoskeletal: (-) Edema. Positive Phalens and Tinnels sign. Full ROM in her hands. Hands are slightly swollen, radial pulses 2+. Lymph: (-) Cervical adenopathy Neuro: Alert, Oriented x3 Psych: Mood and affect Normal Triage Information Reviewed: Yes Vital Signs On Initial Exam: Initial Vitals Temp Pulse Resp BP Pulse Ox 97.2 F 70 20 131/82 99 03/14/20 07:11 12/22/19 07:11 12/22/19 07:11 12/22/19 07:11 12/22/19 07:11 Vital Signs Reviewed: Yes Procedures - Sedation Patient Received Moderate/Deep Sedation with Procedure: No Diagnostics - Vital Signs Vital Signs Temp Pulse Resp BP Pulse Ox 12/22/19 07:11 97.2 F 70 20 131/82 99 - Laboratory Lab Statement: Any lab studies that have been ordered have been reviewed, and results considered in the medical decision making process. Course/Dx - Course Course Of Treatment: Patient is here with bilateral hand numbness isn't known tunnel syndrome. Patient's symptoms are worse today so she was concerned. Patient has not been using her wrist splints and not taking any medications for her symptoms. Patient was encouraged to wear her response especially at night, take Motrin and Tylenol for pain, and was given orthopedic surgery for follow- up. - Diagnoses Provider Diagnoses: Hand numbness Discharge ED - Sign-Out/Discharge Documenting (check all that apply): Patient Departure - Discharge - Discharge Plan Condition: Stable Disposition: HOME Patient Education Materials: Paresthesia (ED) Referrals: Alexis Montoya MD [Medical Doctor] - Additional Instructions: Follow up with Orthopedics. Wear your wrist braces at night when you sleep, raise your hands above your chest. Take Tylenol for pain. - Billing Disposition and Condition Condition: STABLE Disposition: Home - Attestation Statements Document Initiated by Marlo: Yes Documenting Scribe: Ruperto Alvares Provider For Whom Marlo is Documenting (Include Credential): Sotero Clark MD Scribe Attestation: Ruperto Heller, scribed for Sotero Clark MD on 12/23/19 at 1039. Scribe Documentation Reviewed: Yes Provider Attestation: The documentation as recorded by the Ruperto morley accurately reflects the service I personally performed and the decisions made by me, Sotero Clark MD Status of Scribe Document: Viewed
[2019-12-22 07:57] VITALS: BP 0/0
== END 2019-12-22 07:55 | disposition home or self-care (01) ==
LOC: ED 07:10
DX: R20.0 Anesthesia of skin (principal); R60.9 Edema, unspecified; J45.909 Unspecified asthma, uncomplicated; F17.210 Nicotine dependence, cigarettes, uncomplicated; Z88.0 Allergy status to penicillin; Z88.1 Allergy status to other antibiotic agents
CPT/HCPCS: 99282

== ENCOUNTER 2020-01-30 04:26 | Emergency (ER) | payer MEDICAID, OTHER ==
[2020-01-30] MEDS ORDERED: NS 0.9% 1000 ML** 1,000 ML IV ONE (04:40)
[2020-01-30] MEDS ORDERED: Ondansetron INJ* 2 MG/ML VIAL IV ONE (04:40)
[2020-01-30] MEDS ORDERED: Pantoprazole IV* 40 MG IV ONE (04:40)
--- NOTE | 2020-01-30 05:11 | ED ---
Complex/Multi-Sys Presentation - HPI Summary HPI Summary: Patient is a 29 y/o F presenting to [facility] with complaints of chills, diaphoresis and N/V. She states that around 0200/0300 01/30/20, she ate "cheesy greens" and a hot pocket that her boyfriend prepared for her. Shortly afterwards , she became nauseous, started vomiting, and was experiencing diaphoresis and chills. Diarrhea denied. She states that no one else who consumed the food had similar Sx. Patient is on Zyrtec. Allergy to Keflex, Cipro, and Penicillin reported. She is a current smoker but denies alcohol and substance usage. PSHx of D and C reported. Home medications and allergies are reviewed. - History Of Current Complaint Chief Complaint: EDNauseaVomitDiarrh Hx Obtained From: Patient Onset/Duration: Lasting Hours, Still Present Timing: Hours Associated Signs And Symptoms: Positive: Nausea, Vomiting, Other - diaphoresis, chills. Negative: Diarrhea - Allergies/Home Medications Allergies/Adverse Reactions: Allergies Allergy/AdvReac Type Severity Reaction Status Date / Time cephalexin [From Keflex] Allergy Severe Hives Verified 01/30/20 04:28 ciprofloxacin [From Cipro] Allergy Severe Hives Verified 01/30/20 04:28 Penicillins Allergy Severe Hives Verified 01/30/20 04:28 Home Medications: Home Medications Buprenorp/Nalox 8-2 MG FILM [Suboxone 8 mg-2 mg Sl Film] 8 mg SL FILM TID [History Confirmed 01/30/20] Gabapentin 600 mg PO BID 01/30/20 [History Confirmed 01/30/20] PMH/Surg Hx/FS Hx/Imm Hx Endocrine/Hematology History: Denies: Hx Diabetes, Hx Thyroid Disease Cardiovascular History: Denies: Hx Hypertension Respiratory History: Reports: Hx Asthma Denies: Hx Chronic Obstructive Pulmonary Disease (COPD) GI History: Denies: Hx Ulcer Musculoskeletal History: Reports: Hx Back Problems - sciatic back pain; pt denies Psychiatric History: Reports: Hx Anxiety, Hx Attention Deficit Hyperactivity Disorder, Hx Depression, Hx Post Traumatic Stress Disorder, Hx Inpatient Treatment, Hx Community Mental Health Tx, Hx Substance Abuse Denies: Hx Eating Disorder, Hx of Violent Episodes Against Others Comment Only: Other Psychiatric Issues/Disorders - drug abuse, on subutex - Surgical History Surgery Procedure, Year, and Place: D and C Infectious Disease History: No Infectious Disease History: Reports: Hx Hepatitis - Hep C cured Denies: Hx Human Immunodeficiency Virus (HIV), Hx of Known/Suspected MRSA, History Other Infectious Disease, Traveled Outside the [place] in Last 30 Days - Family History Known Family History: Positive: Hypertension Negative: Cardiac Disease, Diabetes - Social History Alcohol Use: None Alcohol Amount: recovering Hx Substance Use: Yes Substance Use Type: Reports: None Substance Use Comment - Amount & Last Used: Prenatals stated had relapse in Aug 2018 & early Nov 2018;on subutex Hx Tobacco Use: Yes Smoking Status (MU): Light Every Day Tobacco Smoker Type: Cigarettes Amount Used/How Often: 5-7 cigs/day Length of Time of Smoking/Using Tobacco: started at age 13 Have You Smoked in the Last Year: Yes - Additional Comments History Additional Comments: PSHx of D and C SHx of current smoker, no alcohol or substance usage Review of Systems - ROS Summary Review of Systems Summary: Home Medications Medication Instructions Recorded Confirmed Type Buprenorp/Nalox 8-2 MG FILM 8 mg SL FILM TID 01/30/20 01/30/20 History [Suboxone 8 mg-2 mg Sl Film] Gabapentin 600 mg PO BID 01/30/20 01/30/20 History Positive: Chills, Skin Diaphoresis Positive: Vomiting, Nausea All Other Systems Reviewed And Are Negative: Yes Physical Exam - Summary Physical Exam Summary: General: Well-developed, Well-nourished female. No acute distress. HEENT: Normocephalic, Atraumatic. Eyes: Conjuctiva normal, PERRL. Oropharynx: Clear, mucous membranes moist, (-) exudates. Neck: Soft, FROM, (-) lymphadenopathy, (-) thyromegaly, (-) JVD. Cardiovascular: Normal sinus rhythm, (-) murmur. Lungs: Clear to auscultation bilaterally (-) wheezes, (-) rales, (-) rhonchi. Abdomen: Soft, epigastric tenderness, non-distended, (-) organomegaly, normal bowel sounds. Back: (-) CVA tenderness Extremities: No edema. Skin: Warm, dry, (-) rash. Neuro: Alert and oriented x3, but appears somewhat confused. Moves all extremities equally. No ataxia. No gait disturbance. No sensory deficit. Normal strength, normal sensation. Psychiatric: Mildly agitated, unable to sit still, disorganized and difficulty with concentration. Triage Information Reviewed: Yes Vital Signs On Initial Exam: Initial Vitals Temp Pulse Resp BP Pulse Ox 97.5 F 81 15 123/82 98 01/30/20 04:26 01/30/20 04:26 01/30/20 04:26 01/30/20 04:26 01/30/20 04:26 Vital Signs Reviewed: Yes Procedures - Sedation Patient Received Moderate/Deep Sedation with Procedure: No Diagnostics - Vital Signs Vital Signs Temp Pulse Resp BP Pulse Ox 01/30/20 04:26 97.5 F 81 15 123/82 98 - Laboratory Result Diagrams: 01/30/20 05:06 01/30/20 05:06 Lab Statement: Any lab studies that have been ordered have been reviewed, and results considered in the medical decision making process. Re-Evaluation - Re-Evaluation First Eval Re-Evaluation Time: 05:44 Change: Improved Comment: Patient states that she is concerned she is withdrawing. She admits to having snorted heroin this morning and having taken her subutex as well. Patient was offered admission for detox and rehab. At this time, she refuses this offer stating that she has a [id number] son that she needs to care for. Second Eval Re-Evaluation Time: 07:55 Comment: Patient took outpatient information from social worker psychiatric. Complex Multi-Symp Course/Dx Course Of Treatment: 29-year-old female presents from home with sudden onset of abdominal pain and vomiting at 2 AM. She states she is very hot and sweaty. Denies diarrhea. Denies fever. Had some "cheesy greens and spaghetti" for dinner. Also had a hot pocket. No one else is sick. Initially she denies any drug use. Later admits she has been snorting heroin. Also occasional crack. She is prescribed Subutex and takes irregularly. Started at 2 AM before these symptoms started. She is in initial denial that she is in withdrawal. She was quite agitated upon arrival. Vitals are normal. After very thorough discussion with patient regarding her drug use and one year-old son. Patient still declines admission for detox. Denies rehabilitation. States that she goes to outpatient program where she gets her Subutex. I have ordered IV fluids , Benadryl, clonidine. Patient's INR change shift awaiting evaluation and disposition. During ED course, patient received fluids, Protonix 40 mg IV and Zofran 4 mg IV. - Diagnoses Provider Diagnoses: Heroin abuse - Critical Care Time Critical Care Statement: Critical care time is provided exclusive of any time spent performing procedures. Discharge ED - Sign-Out/Discharge Documenting (check all that apply): Sign-Out Patient Signing out patient TO: Trace Finney - Discharge Plan Condition: Stable Disposition: HOME Patient Education Materials: Narcotic Use Disorder (ED) Referrals: Karolina Tanner MD [Primary Care Provider] - Additional Instructions: FOLLOW UP WITH YOUR PRIMARY CARE PROVIDER IN 2-3 DAYS. RETURN TO THE ED FOR ANY NEW OR WORSENING SYMPTOMS. - Billing Disposition and Condition Condition: STABLE Disposition: Home - Attestation Statements Document Initiated by Scribe: Yes Documenting Scribe: COLLEEN ZUNIGA Provider For Whom Scribe is Documenting (Include Credential): WENDY MANRIQUEZ MD Scribe Attestation: ICOLLEEN, scribed for WENDY MANRIQUEZ MD on 01/30/20 at 2150. Scribe Documentation Reviewed: Yes Provider Attestation: The documentation as recorded by the COLLEEN morley accurately reflects the service I personally performed and the decisions made by me, WENDY MANRIQUEZ MD Status of Scribe Document: Viewed
[2020-01-30 05:29] LABS: ABS Basophils 0.1 10^3/ul (0-0.2); ABS Eosinophils 0.1 10^3/ul (0-0.6); ABS Lymphocytes 1.4 10^3/ul (1.0-4.8); ABS Monocytes 0.4 10^3/ul (0-0.8); ABS Neutrophils 6.3 10^3/ul (1.5-7.7); Hematocrit 43 % (35-47); Hemoglobin 14.9 g/dL (12.0-16.0); Lymphocyte % 16.9 %; Mean Corpuscular HGB Conc 35 g/dL (31-36); Mean Corpuscular Hemoglobin 30 pg (27-31); Mean Corpuscular Volume 86 fL (80-97); Mean Platelet Volume 8.4 fL (7.4-10.4); Platelet Count 244 10^3/uL (150-450); Red Blood Count 4.96 10^6 /uL (3.70-4.87); Red Cell Distribution Width 14 % (10-15); White Blood Count 8.2 10^3/uL (3.5-10.8)
[2020-01-30 05:39] LABS: INR 1.07 (0.82-1.09)
[2020-01-30 05:41] LABS: Urine Appearance Cloudy; Urine Bilirubin Negative (Negative); Urine Blood Negative (Negative); Urine Color Yellow; Urine Glucose Negative (Negative); Urine Ketones Trace (Negative); Urine Nitrite Negative (Negative); Urine Protein Negative (Negative); Urine Specific Gravity 1.009 (1.010-1.030); Urine Urobilinogen Negative (Negative)
[2020-01-30 05:45] LABS: Urine Benzodiazepine Screen None Detected (None Detect); Urine Opiates Screen Presumptive Positive (None Detect)
[2020-01-30 05:48] LABS: ALT 48 U/L (7-52); AST 49 U/L (13-39); Albumin 4.1 g/dL (3.2-5.2); Albumin/Globulin Ratio 1.4 (1-3); Alkaline Phosphatase 109 U/L (34-104); Anion Gap 9 mmol/L (2-11); BUN/Creatinine Ratio 13.3 (8-20); Blood Urea Nitrogen 11 mg/dL (6-24); C Reactive Protein 14.77 mg/L (<8.01); CO2 Carbon Dioxide 26 mmol/L (22-32); Calcium 9.1 mg/dL (8.6-10.3); Chloride 104 mmol/L (101-111); EGFR Non-African American 80.2 (>60); Globulin 2.9 g/dL (2-4); Glucose 90 mg/dL (70-100); Potassium 3.4 mmol/L (3.5-5.0); Sodium 139 mmol/L (135-145)
[2020-01-30 05:53] LABS: HCG Pregnancy < 0.60 mIU/mL
[2020-01-30] MEDS ORDERED: diPHENhydraMINE IV* 50 MG/ML 1 ml VIAL (BENADRYL) IV ONE (06:29)
[2020-01-30] MEDS ORDERED: cloNIDine TAB* 0.1 MG PO ONE (06:29)
[2020-01-30] MEDS: NS 0.9% 1000 ML** 1,000 ML IV ONE ×2 (06:52→07:25)
--- NOTE | 2020-01-30 07:25 | ED ---
Progress - Progress Note Progress Note: Patient was received as a sign out from Dr. Coreas at 0700 on 01/30/20 at shift change pending re-evaluation. Re-Evaluation - Re-Evaluation First Eval Re-Evaluation Time: 07:24 Change: Improved Comment: Patient is sleeping comfortably. Second Eval Re-Evaluation Time: 07:55 Comment: Patient took outpatient information from social work assistant. Course/Dx - Course Course Of Treatment: This patient was signed out by Dr. Coreas at shift change pending re-evaluation. On re-evaluation patient is sleeping comfortably. Patient was seen by social work assistant and took outpatient information. She understands and agrees with discharge plan. Patient will be discharged home with follow up from her PCP. - Diagnoses Provider Diagnoses: Heroin abuse - Critical Care Time Critical Care Statement: Critical care time is provided exclusive of any time spent performing procedures. Discharge ED - Sign-Out/Discharge Documenting (check all that apply): Patient Departure - Discharge home, Receiving Sign-Out Receiving patient FROM: Martha Coreas - Discharge Plan Condition: Stable Disposition: HOME Patient Education Materials: Narcotic Use Disorder (ED) Referrals: Karolina Tanner MD [Primary Care Provider] - Additional Instructions: FOLLOW UP WITH YOUR PRIMARY CARE PROVIDER IN 2-3 DAYS. RETURN TO THE ED FOR ANY NEW OR WORSENING SYMPTOMS. - Billing Disposition and Condition Condition: STABLE Disposition: Home - Attestation Statements Document Initiated by Marlo: Yes Documenting Scribe: Marie Garcia Provider For Whom Marlo is Documenting (Include Credential): Trace Finney MD Scribe Attestation: Marie Heller, scribed for Trace Finney MD on 02/01/20 at 0708. Scribe Documentation Reviewed: Yes Provider Attestation: The documentation as recorded by the Marie morley accurately reflects the service I personally performed and the decisions made by me, Trace Finney MD Status of Scribe Document: Viewed
[2020-01-30 08:24] VITALS: BP 105/63
== END 2020-01-30 08:24 | disposition home or self-care (01) ==
LOC: ED 04:26
DX: F11.10 Opioid abuse, uncomplicated (principal); R11.2 Nausea with vomiting, unspecified; F17.210 Nicotine dependence, cigarettes, uncomplicated; F41.9 Anxiety disorder, unspecified; F32.9 Major depressive disorder, single episode, unspecified; F43.10 Post-traumatic stress disorder, unspecified; Z88.0 Allergy status to penicillin; Z88.8 Allergy status to other drugs, medicaments and biological substances
CPT/HCPCS: 36415; 80053; 80307; 80320; 81003; 83605; 83690; 84702; 85025; 85610; 86140; 96361; 96374; 96375; 99283; A9270-GY; G0480; J1200; J2405

== ENCOUNTER 2024-02-22 20:42 | Inpatient (IN) ==
[2024-02-22 22:05] LABS: Urine Appearance Turbid; Urine Bilirubin Negative (Negative); Urine Blood 1+ (Negative); Urine Color Light-Yellow; Urine Glucose Negative (Negative); Urine Ketones Negative (Negative); Urine Nitrite Negative (Negative); Urine Protein 1+ (>=30 mg/dL) (Negative); Urine Specific Gravity 1.011 (1.002-1.030); Urine Urobilinogen Negative (Negative)
[2024-02-22 22:08] LABS: Urine Bacteria 2+ /HPF (Absent); Urine Red Blood Cell 3+(>10/hpf) /HPF (0-Trace); Urine Squamous Epithelial Cell Present /HPF (Absent); Urine White Blood Cell 3+(>20/hpf) /HPF (0-Trace)
[2024-02-23] MEDS: NS 0.9% 1000 ml BAG 1,000 ML IV ONE (00:32)
[2024-02-23] MEDS: cefTRIAXone 1 gm/50 mL D5W 1 GM/50 ML BAG IV ONE (00:32)
[2024-02-23 00:49] LABS: ABS Lymphocytes 1.2 10^3/uL (1.0-4.8); ABS Monocytes 0.6 10^3/uL (0.0-0.9); ABS Neutrophils 10.2 10^3/uL (1.5-7.6); Eosinophil % 0.1 %; Hematocrit 26.6 % (35-45); Hemoglobin 9.3 g/dL (11.5-14.3); Lymphocyte % 10.2 %; Mean Corpuscular Hemoglobin 29.8 pg (27-33); Mean Corpuscular Hgb Conc 34.9 g/dL (31-36); Mean Corpuscular Volume 85.2 fL (80-97); Platelet Count 291 10^3/uL (150-450); Red Blood Count 3.13 10^6/uL (3.63-4.92); Red Cell Distribution Width 13.4 % (12-17); White Blood Count 12.1 10^3/uL (3.8-11.8)
[2024-02-23 01:43] LABS: Albumin 2.8 g/dL (3.2-5.2); C Reactive Protein 164.16 mg/L (<8.01); Calcium 7.4 mg/dL (8.6-10.3); Creatinine, Serum 0.76 mg/dL (0.51-0.95); Globulin 2.8 g/dL (2-4); Total Bilirubin 0.6 mg/dL (0.2-1.0); Total Protein 5.6 g/dL (6.4-8.9); eGFR CKD-EPI 104.7 (>60)
[2024-02-23] MEDS: Potassium Chlor 20 meq TAB.ER PO ONE ×2 (03:08→07:48)
[2024-02-23] MEDS: Lactated Ringers 1000 ml BAG 1,000 ML IV SCH (04:45)
[2024-02-23] MEDS ORDERED: Buprenorp/Nalox 8-2 MG FILM SL SCH ×2 (05:15→09:00)
[2024-02-23] MEDS: Buprenorp/Nalox 8-2 MG FILM SL SCH (05:43)
[2024-02-23 09:13] LABS: Hematocrit 25.3 % (35-45); Hemoglobin 8.8 g/dL (11.5-14.3); Mean Corpuscular Hgb Conc 34.9 g/dL (31-36); Mean Corpuscular Volume 85.8 fL (80-97); Mean Platelet Volume 7.2 fL (7.5-11.2); Platelet Count 252 10^3/uL (150-450); Red Blood Count 2.95 10^6/uL (3.63-4.92); Red Cell Distribution Width 13.4 % (12-17); White Blood Count 10.3 10^3/uL (3.8-11.8)
[2024-02-23 09:51] LABS: % Iron Saturation 7 % (15-55); .Transferrin 195 mg/dL (203-362); Anion Gap 6 mmol/L (2-16); Blood Urea Nitrogen 12 mg/dL (6-24); CO2 Carbon Dioxide 25 mmol/L (22-32); Calcium 7.5 mg/dL (8.6-10.3); Chloride 105 mmol/L (101-111); Creatinine, Serum 0.72 mg/dL (0.51-0.95); Glucose 134 mg/dL (70-100); Iron < 20 ug/dL (50-212); Magnesium 1.8 mg/dL (1.9-2.7); Potassium 3.2 mmol/L (3.5-5.0); Sodium 136 mmol/L (135-145); Total Iron Binding Capacity 273 mcg/dL (250-450); Unsaturated Iron Binding 253 ug/dL; eGFR CKD-EPI 111.8 (>60)
[2024-02-23 10:15] LABS: Vitamin B12 211 pg/mL (180-914)
[2024-02-23] MEDS: Magnesium Sulfate 2 gm BAG 2 GM/50 ML BAG IVPB ONE (11:56)
[2024-02-23 12:28] LABS: Ferritin 62.7 ng/mL (11-307)
[2024-02-23] MEDS: KCL 20 MEQ/100 ML IVPREMIX 20 MEQ/100 ML BAG IV SCH (14:11)
[2024-02-23] MEDS ORDERED: Nicotine Lozenge mini 4 MG LOZNG.MINI MT PRN (15:10)
[2024-02-23] MEDS: Cyanocobalamin INJ 1,000 MCG/ML VIAL 1 ML VIAL IM SCH (16:36)
[2024-02-23] MEDS: Iron Sucrose 200 MG in NS 0.9% 100 ml BAG 100 ML IVPB SCH (18:03)
[2024-02-24] MEDS: cefTRIAXone 1 gm/50 mL D5W 1 GM/50 ML BAG IV SCH (00:11)
[2024-02-25 07:11] LABS: ABS Basophils 0.1 10^3/uL (0.0-0.1); ABS Eosinophils 0.1 10^3/uL (0.0-0.5); ABS Lymphocytes 1.7 10^3/uL (1.0-4.8); ABS Monocytes 0.3 10^3/uL (0.0-0.9); ABS Neutrophils 5.1 10^3/uL (1.5-7.6); ABS Nucleated RBC 0.02 10^3/ul; Eosinophil % 0.7 %; Hematocrit 30.5 % (35-45); Hemoglobin 10.4 g/dL (11.5-14.3); Lymphocyte % 23.3 %; Mean Corpuscular Hemoglobin 29.8 pg (27-33); Mean Corpuscular Hgb Conc 34.3 g/dL (31-36); Mean Corpuscular Volume 86.9 fL (80-97); Mean Platelet Volume 6.9 fL (7.5-11.2); Nucleated Red Blood Cells % 0.2 %/100WBC (0.0-0.8); Platelet Count 266 10^3/uL (150-450); Red Blood Count 3.51 10^6/uL (3.63-4.92); Red Cell Distribution Width 13.8 % (12-17); White Blood Count 7.2 10^3/uL (3.8-11.8)
[2024-02-25 07:51] LABS: Calcium 8.6 mg/dL (8.6-10.3); Creatinine, Serum 0.59 mg/dL (0.51-0.95); Magnesium 1.9 mg/dL (1.9-2.7); Potassium 4.7 mmol/L (3.5-5.0); eGFR CKD-EPI 120.5 (>60)
[2024-02-26] MEDS: Magnesium Sulfate IV 1GM/100ML 1 GM/100 ML BAG IV ONE (08:49)
[2024-02-26 09:52] VITALS: BP 92/53
== END 2024-02-26 11:30 | DRG 566 ==
LOC: EDHOLD 20:42 → ED 20:42 → SUATTDRO 02-23 02:25 → SSU 02-23 03:26
PROVIDERS: ADMIT Internal Medicine; ATTEND Student in an Organized Health Care Education/Training Program

== ENCOUNTER 2024-07-10 12:03 | Inpatient (IN) ==
[2024-07-10] MEDS ORDERED: Lidocaine 1% VIAL 10 MG/ML 30 ML VIAL INJ PRN (13:46)
[2024-07-10] MEDS ORDERED: Ondansetron 4 mg VIAL 2 MG/ML 2 ml VIAL IV PRN (14:03)
[2024-07-10 14:53] LABS: ABS Eosinophils 0.1 10^3/uL (0.0-0.5); ABS Lymphocytes 2.2 10^3/uL (1.0-4.8); ABS Monocytes 0.5 10^3/uL (0.0-0.9); ABS Neutrophils 8.5 10^3/uL (1.5-7.6); ABS Nucleated RBC 0.01 10^3/ul; Eosinophil % 0.7 %; Hematocrit 36.9 % (35-45); Hemoglobin 12.4 g/dL (11.5-14.3); Lymphocyte % 19.7 %; Mean Corpuscular Hemoglobin 29.5 pg (27-33); Mean Corpuscular Hgb Conc 33.6 g/dL (31-36); Mean Platelet Volume 8.8 fL (7.5-11.2); Nucleated Red Blood Cells % 0.1 %/100WBC (0.0-0.8); Platelet Count 231 10^3/uL (150-450); Red Cell Distribution Width 13.8 % (12-17); White Blood Count 11.3 10^3/uL (3.8-11.8)
[2024-07-10] MEDS: miSOPROStol 100 mcg TAB VAGINAL ONE (14:55)
[2024-07-10] MEDS: Buffered Lidocaine 1% SYRIN 1 ml INTRADERM ONE (15:23)
[2024-07-10 15:24] LABS: Urine Benzodiazepine Screen None Detected (None Detect); Urine Cannabinoids Screen None Detected (None Detect); Urine Opiates Screen None Detected (None Detect)
[2024-07-10 15:44] LABS: Urine Bacteria Absent /HPF (Absent); Urine Red Blood Cell Trace(0-2/hpf) /HPF (0-Trace); Urine Squamous Epithelial Cell Present /HPF (Absent); Urine White Blood Cell 2+(11-20/hpf) /HPF (0-Trace)
[2024-07-10 15:56] LABS: Urine Appearance Clear; Urine Bilirubin Negative (Negative); Urine Blood Trace (Intact) (Negative); Urine Color Straw; Urine Ketones Negative (Negative); Urine Protein Negative (Negative); Urine pH 6.5 (5.0-8.0)
[2024-07-10 15:57] LABS: Urine Nitrite Negative (Negative); Urine Urobilinogen 0.2 (Negative) (Negative)
[2024-07-10] MEDS: Lactated Ringers 1000 ml BAG 1,000 ML IV ONE ×2 (20:34→21:50)
[2024-07-10] MEDS ORDERED: Phenylephrine 40 mcg/mL 10mL (400mcg) SYRINGE IV PUSH PRN ×2 (21:29)
[2024-07-10] MEDS ORDERED: Sodium Citrate/Citric Acid LIQ 15 ML UDC PO PRN (21:29)
[2024-07-10] MEDS: OBEPIDURAL (200 ML) 200 ML EPIDURAL SCH (22:11)
[2024-07-10] MEDS: Lactated Ringers 1000 ml BAG 1,000 ML IV SCH (22:36)
[2024-07-10 23:22] LABS: Urine Appearance Clear; Urine Bilirubin Negative (Negative); Urine Blood Negative (Negative); Urine Color Yellow; Urine Glucose Negative (Negative); Urine Ketones Negative (Negative); Urine Nitrite Negative (Negative); Urine Protein Trace (Negative); Urine Specific Gravity 1.027 (1.002-1.030); Urine Urobilinogen Negative (Negative); Urine pH 6.5 (5.0-8.0)
[2024-07-10 23:24] LABS: Urine Bacteria Absent /HPF (Absent); Urine Red Blood Cell Absent /HPF (0-Trace); Urine Squamous Epithelial Cell Present /HPF (Absent); Urine White Blood Cell Trace(0-5/hpf) /HPF (0-Trace)
[2024-07-10] MEDS: OBEPIDURAL (200 ML) 200 ML EPIDURAL ONE (23:53)
[2024-07-10] MEDS: Lidocaine 1.5% EPI 1:200,000 30 ML SDV ONE ×2 (23:53→23:54)
[2024-07-11] MEDS: Amphetamine MIXED SALT 10mgTAB PO SCH ×2 (00:02→09:17)
[2024-07-11] MEDS: Oxytocin in LR 20,000 MILLI.UNIT/1,000 ML BAG IV SCH (05:23)
[2024-07-11] MEDS ORDERED: Glycerin ADULT 2.4 gm SUPP PR PRN (10:11)
[2024-07-11] MEDS: Oxytocin 10 UNITS/ML 1 ML VIAL IM ONE (10:40)
[2024-07-11] MEDS: Witch Hazel PAD JAR TOPICAL PRN (12:17)
[2024-07-11] MEDS: Dibucaine 1% OINT 28.35 GM TUBE PR PRN (12:17)
[2024-07-12] MEDS: Lidocaine 1.5% EPI 1:200,000 30 ML SDV ONE ×2 (07:32→07:33)
[2024-07-12] MEDS: Oxytocin in LR 20,000 MILLI.UNIT/1,000 ML BAG IV SCH (11:28)
[2024-07-12] MEDS: Lactated Ringers 1000 ml BAG 1,000 ML IV SCH (12:48)
[2024-07-12] MEDS: Phenylephrine 40 mcg/mL 10mL (400mcg) SYRINGE ONE (12:48)
[2024-07-13 09:55] VITALS: BP 128/85
[2024-07-13] MEDS: medroxyPROGESTERone ACETATE 150 MG/ML VIAL IM ONE (16:52)
== END 2024-07-13 17:00 | disposition home or self-care (01) | DRG 560 ==
LOC: MCHOBOUT 12:03 → MCHOB 13:38
PROVIDERS: ATTEND Midwife